=== PATIENT | female | born 1955 | race Caucasian/White ===

== ENCOUNTER 2016-10-09 18:32 | Emergency (ER) | payer OTHER ==
[2015-08-31 12:25] VITALS: Ht 162.6 cm; Wt 87.1 kg
[~2016-10-09] VITALS: Ht 162.6 cm; Wt 87.1 kg
[~2016-10-09 18:32] MED LIST: ALBMDI INH; ALPR0.5T96 PO; BECL8.7A5 INH; BENA20TA2 PO; HYDR-4100 PO; HYDR25TA4 PO; IBUP-1480 PO; METF1000 PO; NEU300 PO; PARO-41 PO
[2016-10-09 18:37] VITALS: BP 157/83; PULSE 118; RESP 20; TEMP 96.9; O2SAT 97
[2016-10-09] MEDS ORDERED: LevALBUTEROL HCL 1.25 MG/0.5 ML *CONC.* VIAL.NEB (XOPENEX CONC.) INH ONE ×2 (19:00→19:15)
--- NOTE | 2016-10-09 19:10 | NUR ---
Pt states she started having SOB with no relief from inhaler earlier today. Pt was getting breathing tx for SOB. Lung sounds had wheeze bilaterally with good tidal volume. Pt reports headache 5/10 . Will continue to monitor via gleason gear generator. No other injuries or complaints mentioned/noted. No distress noted.
--- NOTE | 2016-10-09 19:10 | NUR ---
Note amandamarie in EDM - 10/10/16 at 0257 by WILLA Pt states she started having SOB with no relief from inhaler earlier today. Pt was getting breathing tx for SOB. Lung sounds had wheeze bilaterally with good tidal volume. Pt reports pain 5/10 in the headache. Will continue to monitor via clinical research monitor. No other injuries or complaints mentioned/noted. No distress noted.
[2016-10-09] MEDS ORDERED: MAGNESIUM SULFATE 50 ML IV ONE (19:15)
[2016-10-09] MEDS ORDERED: methylPREDNISolone SOD SUCC/PF 62.5 MG/ML VIAL IVP ONE (19:15)
--- NOTE | 2016-10-09 20:10 | NUR ---
Pt states her headache is getting unbearable and would like some pain medication for head. Dr. Ovalle made aware.
[2016-10-09] MEDS ORDERED: HYDROcodone/ACETAMIN 5-325 MG TAB (NORCO/ VICODIN) PO ONE (20:15)
--- NOTE | 2016-10-09 20:22 | NUR ---
ER Dr. Ovalle at bedside examining patient.
[2016-10-09] MEDS ORDERED: IPRATROPIUM/ALBUTEROL SULFATE 3 ML AMPUL.NEB INH ONE (20:30)
[2016-10-09] MEDS ORDERED: AZITHROMYCIN 250 MG TABLET PO ONE (20:30)
[2016-10-09 21:40] VITALS: BP 144/84; PULSE 106; RESP 20; TEMP 97.8; O2SAT 97
--- NOTE | 2016-10-09 21:40 | NUR ---
Patient given written and verbal discharge instructions and verbalizes understanding. ER MD discussed with patient the results and treatment provided. Patient in stable condition. ID arm band removed. IV catheter removed intact and dressing applied, no active bleeding. Rx of Zithromax, ibuprofen, and albuterol given. Patient educated on pain management and to follow up with PMD. Pain Scale 0/10. Opportunity for questions provided and answered.
== END 2016-10-09 21:40 | disposition home or self-care (01) ==
LOC: SED 18:32
DX: J20.9 Acute bronchitis, unspecified (principal); J45.901 Unspecified asthma with (acute) exacerbation; E11.9 Type 2 diabetes mellitus without complications; I10 Essential (primary) hypertension; Z79.899 Other long term (current) drug therapy
CPT/HCPCS: 71010; 94640; 96365; 96375; 99284; J2930; J3475; Q0144

== ENCOUNTER 2017-11-30 07:30 | Emergency (ER) | payer OTHER ==
[~2017-11-30] VITALS: Ht 162.6 cm; Wt 88.5 kg
[~2017-11-30 07:30] MED LIST changes: -HYDR25TA4 PO; -IBUP-1480 PO
[2017-11-30 07:43] VITALS: BP_SYST 122
[2017-11-30 08:05] LABS: BASOPHILS % (AUTO) 0.2 % (0.0-2.0); HEMATOCRIT 42.7 % (36-48); HEMOGLOBIN 13.9 g/dL (12.0-16.0); LYMPHOCYTES # (AUTO) 1.1 K/uL (1.0-5.5); LYMPHOCYTES % (AUTO) 12.4 % (20.5-51.5); MEAN CORPUSCULAR HEMOGLOBIN 29 pg (27-31); MEAN CORPUSCULAR HGB CONC 33 % (32-36); MEAN CORPUSCULAR VOLUME 90 fL (79.0-98.0); MONOCYTES # (AUTO) 0.5 K/uL (0.0-1.0); MONOCYTES % (AUTO) 5.2 % (1.7-9.3); NEUTROPHILS # (AUTO) 7.3 K/uL (1.8-7.7); NEUTROPHILS % (AUTO) 82.2 % (40.0-70.0); PLATELET COUNT (AUTO) 118 K/uL (130-430); RED BLOOD CELL COUNT(AUTO) 4.76 MIL/uL (4.2-6.2); RED CELL DISTRIBUTION WIDTH 12.1 % (9.0-15.0); WHITE BLOOD COUNT (AUTO) 8.9 K/uL (4.8-10.8)
[2017-11-30 08:25] LABS: INR 0.9 (0.8-1.2); PROTHROMBIN TIME 9.5 SECS (9.5-12.5)
[2017-11-30 08:26] LABS: ALBUMIN 3.4 g/dL (3.4-4.8); CALCIUM 9.2 mg/dL (8.4-11.0); CREATININE 0.95 mg/dL (0.55-1.30)
[2017-11-30 08:28] LABS: POTASSIUM 2.8 mmol/L (3.5-5.1)
[2017-11-30] MEDS ORDERED: NS 500 ML IV ONE (08:45)
[2017-11-30] MEDS ORDERED: KCL 40 mEq in 100 mL (PREMIX) 100 ML IV ONE (08:45)
[2017-11-30 09:01] LABS: CKMB RELATIVE INDEX 0.2 (0.0-2.9); CREATINE KINASE MB 0.5 ng/mL (0-3.6)
[2017-11-30] MEDS ORDERED: KCL 20 mEq in 100 mL (PREMIX) 200 ML IV ONE (09:04)
[2017-11-30] MEDS ORDERED: KETOROLAC TROMETHAMINE 30 MG VIAL IVP ONE (09:15)
[2017-11-30] MEDS ORDERED: ONDANSETRON HCL 4 MG/2 ML VIAL IVP ONE (09:15)
[2017-11-30] MEDS ORDERED: NACL 0.9% 1,000 ML IV ONE (11:00)
[2017-11-30 14:10] LABS: CALCIUM 8.2 mg/dL (8.4-11.0); CREATININE 0.85 mg/dL (0.55-1.30)
[2017-11-30 14:54] VITALS: BP_SYST 111
== END 2017-11-30 14:54 | disposition home or self-care (01) ==
LOC: SED 07:30
DX: J09.X2 Influenza due to identified novel influenza A virus with other respiratory manifestations (principal); E87.6 Hypokalemia; J45.909 Unspecified asthma, uncomplicated; E11.9 Type 2 diabetes mellitus without complications; I10 Essential (primary) hypertension; Z79.899 Other long term (current) drug therapy
CPT/HCPCS: 36415; 71045; 80048; 80053; 82550; 82553; 83690; 84484; 85025; 85610; 85730; 86710; 93005; 96365; 96366; 96375; 99285; J1885; J2405; J3480; J7030; J7040

== ENCOUNTER 2017-12-07 08:47 | Emergency (ER) | payer OTHER ==
[~2017-12-07] VITALS: Ht 162.6 cm; Wt 88.5 kg
[2017-12-07 08:51] VITALS: BP_SYST 152
[2017-12-07] MEDS ORDERED: IPRATROPIUM BROM 0.5 MG/2.5 ML VIAL.NEB (ATROVENT) IH ONE (09:00)
[2017-12-07] MEDS ORDERED: ASPIRIN 81 MG TAB.CHEW PO ONE (09:00)
[2017-12-07] MEDS ORDERED: ALBUTEROL SULFATE 0.083% 2.5 MG/3 ML VIAL.NEB IH ONE (09:00)
[2017-12-07] MEDS ORDERED: methylPREDNISolone SOD SUCC/PF 62.5 MG/ML VIAL IVP ONE (09:00)
[2017-12-07] MEDS ORDERED: cefTRIAXone 1 GM in D5W 50 ML IV ONE (09:15)
[2017-12-07 09:26] LABS: CALCIUM 9.4 mg/dL (8.4-11.0); CREATININE 0.75 mg/dL (0.55-1.30); POTASSIUM 3.2 mmol/L (3.5-5.1)
[2017-12-07 09:30] LABS: INR 1.1 (0.8-1.2); PROTHROMBIN TIME 10.7 SECS (9.5-12.5)
[2017-12-07 09:31] LABS: ALBUMIN 3.1 g/dL (3.4-4.8); TOTAL BILIRUBIN 0.7 mg/dL (0.0-1.0)
[2017-12-07 09:37] LABS: BASOPHILS % (AUTO) 0.1 % (0.0-2.0); EOSINOPHILS % (AUTO) 0.4 % (0.0-4.0); HEMOGLOBIN 12.8 g/dL (12.0-16.0); LYMPHOCYTES # (AUTO) 1.4 K/uL (1.0-5.5); LYMPHOCYTES % (AUTO) 12.2 % (20.5-51.5); MEAN CORPUSCULAR HEMOGLOBIN 29 pg (27-31); MEAN CORPUSCULAR HGB CONC 33 % (32-36); MEAN CORPUSCULAR VOLUME 89 fL (79.0-98.0); MONOCYTES # (AUTO) 0.5 K/uL (0.0-1.0); MONOCYTES % (AUTO) 4.8 % (1.7-9.3); NEUTROPHILS # (AUTO) 9.4 K/uL (1.8-7.7); NEUTROPHILS % (AUTO) 82.5 % (40.0-70.0); PLATELET COUNT (AUTO) 356 K/uL (130-430); RED BLOOD CELL COUNT(AUTO) 4.37 MIL/uL (4.2-6.2); RED CELL DISTRIBUTION WIDTH 11.8 % (9.0-15.0); WHITE BLOOD COUNT (AUTO) 11.3 K/uL (4.8-10.8)
[2017-12-07] MEDS ORDERED: cefTRIAXone 1 GM VIAL ONE (10:10)
[2017-12-07 10:36] LABS: BILIRUBIN,URINE 1+ (NEGATIVE); BLOOD, URINE NEGATIVE (NEGATIVE); CLARITY/URINE HAZY (CLEAR); COLOR,URINE AMBER (YELLOW); GLUCOSE,URINE NEGATIVE (NEGATIVE); KETONES,URINE NEGATIVE (NEGATIVE); LEUKOCYTE ESTERASE ,URINE NEGATIVE (NEGATIVE); NITRITE, URINE NEGATIVE (NEGATIVE); PROTEIN URINE TRACE (NEGATIVE)
[2017-12-07 10:37] LABS: UROBILINOGEN,URINE >=8 (0.2-1.0)
[2017-12-07] MEDS ORDERED: POTASSIUM CHLORIDE 20 MEQ/PKT PACKET PO ONE (10:45)
[2017-12-07 10:53] LABS: BACTERIA,URINE MODERATE /HPF (None Seen); RBC,URINE 0-3 /HPF (0-3)
[2017-12-07 11:30] VITALS: BP_SYST 129
== END 2017-12-07 11:30 | disposition home or self-care (01) ==
LOC: SED 08:47
DX: J40 Bronchitis, not specified as acute or chronic (principal); E87.6 Hypokalemia; E11.9 Type 2 diabetes mellitus without complications; I10 Essential (primary) hypertension; Z79.899 Other long term (current) drug therapy
CPT/HCPCS: 36415; 80053; 81000; 82550; 83690; 84484; 85025; 85610; 85730; 87086; 93005; 94640; 96365; 96375; 99285; J0696; J2930; J7060

== ENCOUNTER 2020-06-12 11:11 | Inpatient (IN) | payer OTHER, SELFPAY ==
[~2020-06-12] VITALS: Ht 162.6 cm; Wt 81.6 kg
[~2020-06-12 11:11] MED LIST changes: +ALPR0.5T PO; -ALPR0.5T96 PO; -BENA20TA2 PO; +BENA20TA9 PO
[2020-06-12 11:17] VITALS: BP_SYST 155
--- NOTE | 2020-06-12 11:21 | NUR ---
Patient to ER bed 07 to gown for evaluation. Side rails up.
--- NOTE | 2020-06-12 11:23 | NUR ---
Patient arrived in the ED c/o headaches, elevated blood pressure, numbness on left hand for a week. Denied any chest pain or shortness of breath. Denied any fevers, chills, nausea or vomiting. Patient is alert and oriented x4, respirations even and unlabored, speaking in full sentences, and ambulating with a steady gait. VSS, pain level 7/10. Informed of the approximate wait time. Instructed to notify ED staff for any changes in condition or worsening of symptoms while waiting to be seen by an ED provider. Patient verbalized understanding.
--- NOTE | 2020-06-12 11:27 | NUR ---
ER Dr. Keli Bustamante at bedside examining patient.
[2020-06-12] MEDS ORDERED: KETOROLAC TROMETHAMINE 60 MG/2 ML VIAL IM ONE (11:45)
[2020-06-12] MEDS ORDERED: ONDANSETRON 4 MG ODT TAB PO ONE (11:45)
--- NOTE | 2020-06-12 11:47 | NUR ---
OFF TO RADIOLOGY VIA WHEELCHAIR.
[2020-06-12 11:56] LABS: BASOPHILS % (AUTO) 0.7 % (0.0-2.0); EOSINOPHILS # (AUTO) 0.1 K/uL (0.0-0.4); HEMATOCRIT 40.1 % (36-48); HEMOGLOBIN 13.7 g/dL (12.0-16.0); LYMPHOCYTES # (AUTO) 1.9 K/uL (1.0-5.5); LYMPHOCYTES % (AUTO) 28.1 % (20.5-51.5); MEAN CORPUSCULAR HEMOGLOBIN 31 pg (27-31); MEAN CORPUSCULAR HGB CONC 34 % (32-36); MEAN CORPUSCULAR VOLUME 92 fL (79.0-98.0); MONOCYTES # (AUTO) 0.3 K/uL (0.0-1.0); MONOCYTES % (AUTO) 4.9 % (1.7-9.3); NEUTROPHILS # (AUTO) 4.4 K/uL (1.8-7.7); NEUTROPHILS % (AUTO) 65.3 % (40.0-70.0); PLATELET COUNT (AUTO) 247 K/uL (130-430); RED BLOOD CELL COUNT(AUTO) 4.37 MIL/uL (4.2-6.2); RED CELL DISTRIBUTION WIDTH 12.9 % (9.0-15.0); WHITE BLOOD COUNT (AUTO) 6.7 K/uL (4.8-10.8)
[2020-06-12 12:16] LABS: CALCIUM 9.6 mg/dL (8.4-11.0); CREATININE 0.81 mg/dL (0.55-1.30); POTASSIUM 4.1 mmol/L (3.5-5.1)
[2020-06-12 12:21] LABS: ALBUMIN 3.7 g/dL (3.4-4.8); TOTAL BILIRUBIN 0.5 mg/dL (0.0-1.0)
[2020-06-12] MEDS ORDERED: ASPIRIN 325 MG TABLET PO ONE (13:30)
--- NOTE | 2020-06-12 14:10 | NUR ---
ECG done at bedside as ordered by Dr. DONTA NICHOLS. Patient tolerated the procedure well. ER Physician given copy of EKG for review.
--- NOTE | 2020-06-12 14:43 | NUR ---
Patient will be admitted to care of DR. BEST. Admitted to TELEMETRY unit. Will go to room 114A. Belongings list completed. Complete and up to date summary report printed. SBAR report to be given at bedside with opportunity for questions.
[2020-06-12 15:06] VITALS: BP_SYST 146
[2020-06-12] MEDS ORDERED: ACETAMINOPHEN 325 MG TABLET PO PRN (15:15)
[2020-06-12] MEDS ORDERED: ONDANSETRON HCL 4 MG/2 ML VIAL IVP PRN (15:15)
[2020-06-12] MEDS ORDERED: MORPHINE 2 MG/ML INJ. SYRINGE IVP PRN (15:15)
--- NOTE | 2020-06-12 15:50 | NUR ---
RECEIVED REPORT FROM RESOURCE RN, JONES. PT AAOX4, IN ROOM ,VS WNL T98.1, P 82, RR 18, BP136/81,PO2 97%. PRESENTLY CORATID ULTRASOUND BEING DONE AT BEDSIDE. PT VOICES NO C/O C/P, OR DISCOMFORT AT THIS TIME.
[2020-06-12 16:00] VITALS: BP_SYST 136
--- NOTE | 2020-06-12 16:25 | NUR ---
CAROTID ULTRASOUND COMPLETED, PT ON THE PHONE AT P[RESENT. A SNACK WAS GIVEN TO PT- DECAF COFFEE, 1/2 OF TURKEY SANDWICH, AND A PUDDING. PT EATS INDEPENDENTLY, NAD NOTED.
--- NOTE | 2020-06-12 16:47 | NUR ---
CONSULTATION PAGED/CALLED Reason for Consultation: [] CVA Person Who was Notified: [] [place] Consulting Physician: [] DR ROSS [facility] Aide Specialty: [] CARDIO Ordering Physician: [] DR Najma BEST
--- NOTE | 2020-06-12 17:00 | NUR ---
RADIOLOGY ADMINISTRATOR: DR JUVENAL ROSS NP SAW AND ASSESSED PATIENT AT BEDSIDE.
[2020-06-12 17:27] LABS: CHOLESTEROL 135 mg/dL (<200); HDL CHOLESTEROL 31 mg/dL (>55); LDL CHOLESTEROL 98 mg/dL (<100); TRIGLYCERIDES 119 mg/dL (30-150)
--- NOTE | 2020-06-12 18:40 | NUR ---
POST STROKE ASSESSMENT DONE WITH PATIENT DIRECTED. PT HAS HER OWN TEETH, HER SMILE IS WNL, ABLE TO MOVE ALL EXTREMITIES W/ O RESIDUAL. SWALLOWS WITHOUT DIFFICULTY, DROOLING, OR WET COUGH. SEE NURSING ASSESSMENT.
--- NOTE | 2020-06-12 18:50 | NUR ---
PT W/ C/O FEELING COLD, WARM BLANKET GIVEN, PT WAS THANKFUL WENT TO SLEEP. PT ATE 60% OF DINNER. NAD NOTED, NO C/O CHEST PAIN OR DISCOMFORT.
[2020-06-12 19:00] VITALS: BP_SYST 145
--- NOTE | 2020-06-12 19:15 | NUR ---
change of shift.pt.presents quiescent affect;calm,resting.pt.presents admit dx;tia.pt.presents no c/o pain,nausea.no general weakness.no dizziness asymptomatic r/e tia.pt.capable to reposition self/ambulate.general status stable;unlabored.call light/telephone w/in access of the pt.
--- NOTE | 2020-06-12 19:25 | NUR ---
REPORT GIVEN TO STEPHANIE GRAIN GRADER RN AT BEDSIDE. PT ASLEEP AT PRESENT RESP REG NON-LABORED.
[2020-06-12 20:00] VITALS: BP_SYST 145
[2020-06-12] MEDS: metFORMIN HCL 500 MG TABLET PO SCH (20:00)
--- NOTE | 2020-06-12 20:00 | NUR ---
pt.assessed.v/s assessed values w/in normal limits.i have apprised the pt.that snacks/beverages are available w/in r-the shift. no requests posited@this hour.pt.had apprised me that she had not received the administration of her medications.byron to review the pt' s medications list.to apprise of the pt's medications.ordered.per med-reconciliation.pt.capable to reposition self.pt.had ambulated to the restroom.gait assessed steady wnl.i performed the neuro-assessment results wnl.i have provided the pt. w toiletries.pt's telephone labor standards director [email or web address].call light/telephone w/in access of the pt.
[2020-06-12] MEDS: GABAPENTIN 300 MG CAPSULE PO SCH (21:00)
--- NOTE | 2020-06-12 21:00 | NUR ---
2100p medications/dosages reviewed w the pt.to page .
--- NOTE | 2020-06-12 21:04 | NUR ---
CONSULT REASON FOR CONSULT: ACUTE CVA PERSON I SPOKE WITH: SENT DR. SALDIVAR A TEXT TO LET HIM KNOW HE HAD A CONSULT REQUESTING DOCTOR: ESTEPHANIA
--- NOTE | 2020-06-12 22:00 | NUR ---
pt.assessed.pt.presents quiescent affect;calm,resting.no requests posited@this hour.pt.capable to reposition self/ambulate. call light/telephone w/in access of the pt.
[2020-06-12] MEDS ORDERED: HYDROcodone/ACETAMIN 10-325 MG TAB PO ONE (22:45)
[2020-06-12] MEDS ORDERED: NALOXONE HCL 0.4 MG/ML AMP (NARCAN) IVP PRN (22:45)
[2020-06-12] MEDS ORDERED: GABAPENTIN 300 MG CAPSULE PO ONE (22:45)
--- NOTE | 2020-06-12 23:00 | NUR ---
returned the page.i apprised of the clarification of the dosage of the pt's medicaction's:neurntuin;60mg qid.shobha orsdwred. meurotin ;60m,g po x1/norco;10/325mg po x1.i bushra coates the neruton /nroco:120/325mg xanmax;0/5mg po.nol adfonal rewqust pe the pot/. Addendum: 06/13/20 at 0410 by Corona Brandon RN above note should read: returned the page.i apprised of the clarification of the dosages of the pt's medications.neurontin:600mg po qid,norco;10/325mg po tid. ordered the medications per the pt's dosages po x1. i have administered the neurontin;600mg po x1/norco;10/325mg po x1 xanax;0.5mg po. Addendum: 06/18/20 at 2340 by Corona Brandon RN HIGH ALERT NOTE: Called Dr. ellington back at [phone];pager. identified within the medical roster to verify physician authenticity. i apprised denisse of pt's home schdul;e;norco;10mg/ qid.schduled. sebastien ordered norco;10/325mg po x1.
[2020-06-12] MEDS: ALPRAZolam 0.25 MG TABLET PO PRN (23:12)
[2020-06-12] MEDS ORDERED: GABAPENTIN 300 MG CAPSULE PO SCH (23:15)
--- NOTE | 2020-06-13 | NUR ---
pt.assessed.v/s assessed values wnl.no c/o pain,nausea.no requests posited@this hour.neuro-assessment performed results wnl. pt.capable to reposition self/ambulate.no requests posited@this hour.call light/telephone w/in access of the pt.
[2020-06-13 00:04] VITALS: BP_SYST 121
--- NOTE | 2020-06-13 02:00 | NUR ---
pt.assessed.pt.presents quiescent affect;calm,somnolent.per flacc pain mgx pt.absent facial grimaces/body posturing. pt.capable to reposition self.general status stable.respiratory status stable;unlabored.call light/telephone w/in access of the pt.
--- NOTE | 2020-06-13 06:04 | NUR ---
pt.assessed.pt.presents quiescent affect;calm,somnolent.per flacc pain mgx pt.absent facial grimaces/body posturing. pt.capable to reposition self.general status stable.respiratory status stable;unlabored.call light/telephone w/in reach of the pt.
[2020-06-13 07:30] VITALS: BP_SYST 130
--- NOTE | 2020-06-13 07:40 | NUR ---
Opening Note patient in bed resting, a/o x 4, respirations even and unlabored, patient in stable condition, fall and aspiration precautions put in place, bed locked and at low position, call light within reach, will monitor patient for any changes.
[2020-06-13] MEDS ORDERED: PARoxetine HCL 20 MG TABLET PO SCH (09:00)
--- NOTE | 2020-06-13 09:18 | NUR ---
MD Rounds Dr. Sutherland at bedside assessing patient, will follow up with any new orders.
[2020-06-13] MEDS: ASPIRIN 325 MG TABLET (ECOTRIN) PO SCH (09:35)
[2020-06-13] MEDS: GABAPENTIN 300 MG CAPSULE PO SCH ×4 (09:35→20:24)
[2020-06-13] MEDS: metFORMIN HCL 500 MG TABLET PO SCH ×2 (09:35→17:57)
--- NOTE | 2020-06-13 09:36 | NUR ---
RN Rounds/medications patient in bed sitting up, administered medications ordered per MD, patient tolerated well, will continue to monitor patient.
[2020-06-13] MEDS ORDERED: ATORVASTATIN 20 MG TABLET PO ONE (09:45)
[2020-06-13] MEDS ORDERED: NALOXONE HCL 0.4 MG/ML AMP (NARCAN) IVP PRN ×2 (10:00)
[2020-06-13] MEDS ORDERED: HYDROcodone/ACETAMIN 10-325 MG TAB PO ONE (10:00)
--- NOTE | 2020-06-13 10:00 | NUR ---
HIGH ALERT NOTE: Spoke with Dr. Sutherland on the floor and identified within the medical roster to verify physician authenticity for [place] order.
[2020-06-13 12:00] VITALS: BP_SYST 116
--- NOTE | 2020-06-13 14:05 | NUR ---
RN Rounds patient in bed resting, no signs of distress noted, administered medication as ordered per MD, patient tolerated well, no other needs at this time.
--- NOTE | 2020-06-13 15:00 | NUR ---
Dietitian Recommendations * Recommend CCHO, 2 gm Na diet (pt would like to continue to receive regular coffee, not decaf coffee -- no cardiac diet restrictions warranted at this time d/t pt's desire to continue to receive caffeinated drinks, which are not allowed on a cardiac diet) NICOLE, REGINA Please refer to Nutrition Assessment for details. Addendum: 06/13/20 at [address] Amended: Links added.
[2020-06-13 16:00] VITALS: BP_SYST 102
[2020-06-13] MEDS ORDERED: ACETAMINOPHEN 325 MG TABLET PO PRN (16:15)
--- NOTE | 2020-06-13 17:50 | NUR ---
MD Quinton Turpin at bedside assessing patient. Addendum: 06/13/20 at 1807 by Rashmi Philippe RN Dr. Turpin would like to see patient in 2 weeks.
[2020-06-13] MEDS: HYDROcodone/ACETAMIN 10-325 MG TAB PO SCH (18:04)
[2020-06-13 20:00] VITALS: BP_SYST 112
--- NOTE | 2020-06-13 20:00 | NUR ---
Opening notes Pt AAOx4, VSS. No s/s distress noted. Pt denies pain. IV saline locked R. AC clear and patent. Call light within reach. Bed low, locked, siderails up x2. To monitor.
--- NOTE | 2020-06-13 21:14 | NUR ---
Dr. Rose amaro.
[2020-06-13] MEDS: ALPRAZolam 0.25 MG TABLET PO PRN (23:42)
[2020-06-14 01:23] VITALS: BP_SYST 126
--- NOTE | 2020-06-14 01:28 | NUR ---
Rounds Pt asleep, easily awakens. No s/s distress noted. Call light within reach. Bed low, locked, siderails up x2. To monitor.
[2020-06-14] MEDS: HYDROcodone/ACETAMIN 10-325 MG TAB PO SCH ×2 (02:54→10:54)
--- NOTE | 2020-06-14 02:54 | NUR ---
Rounds/Pain med Pt asleep, easily awakens. Scheduled [place] administered as ordered. Call lig within reach. Bed low, locked, siderails up x2. To monitor.
--- NOTE | 2020-06-14 06:30 | NUR ---
Closing notes Pt asleep, easily awakens. No s/s distress noted. Pt denies pain. IV saline locked R. AC clear and patent. Call light within reach. Bed low, locked, siderails up x2. To endorse to AM nurse .
--- NOTE | 2020-06-14 07:20 | NUR ---
PATIENT AWAKE AND ALERT, NONLABORED BREATHING NOTED ON ROOM AIR, TOLERATING WELL. IV LINE INTACT AND PATENT, NO SIGNS OF INFILTRATION NOTED. NO ACUTE DISTRESS NOTED. ALL NEEDS MET. CALL LIGHT IN REACH. FALL AND ASPIRATION PRECAUTIONS IN PLACE. CONTINUE TO MONITOR.
[2020-06-14 08:00] VITALS: BP_SYST 111
[2020-06-14] MEDS: ASPIRIN 325 MG TABLET (ECOTRIN) PO SCH (08:15)
[2020-06-14] MEDS: metFORMIN HCL 500 MG TABLET PO SCH (08:15)
[2020-06-14] MEDS: GABAPENTIN 300 MG CAPSULE PO SCH ×2 (08:16→13:11)
--- NOTE | 2020-06-14 08:21 | NUR ---
ROUTINE MEDS ADMINISTERED ORDERED PER MD, EDUCATION GIVEN, TOLERATED WELL. CONTINUE TO MONITOR.
[2020-06-14] MEDS ORDERED: ATORVASTATIN 20 MG TABLET PO SCH (09:00)
[2020-06-14] MEDS ORDERED: LIP20 PO (10:55)
[2020-06-14] MEDS ORDERED: OXYM-21 NS (10:55)
[2020-06-14] MEDS ORDERED: HYDR-4274 PO (10:55)
[2020-06-14] MEDS ORDERED: IBUP-1970 PO (10:55)
[2020-06-14] MEDS ORDERED: PIOG15TA8 PO (10:55)
[2020-06-14] MEDS ORDERED: NEU300 PO (10:55)
[2020-06-14] MEDS ORDERED: CAT.1 PO (10:55)
[2020-06-14] MEDS ORDERED: GLU500 PO (10:55)
[2020-06-14] MEDS ORDERED: ALBMDI INH (10:55)
[2020-06-14] MEDS ORDERED: FLUT16SP16 NS (10:55)
[2020-06-14] MEDS ORDERED: DOXY100C PO (10:55)
[2020-06-14] MEDS ORDERED: [UNRECOGNIZED DRUG - CODE] PO (10:55)
[2020-06-14] MEDS ORDERED: BENA1TAB71 PO (10:55)
[2020-06-14] MEDS ORDERED: ONDA4TAB5 PO (10:55)
[2020-06-14] MEDS ORDERED: ASA81 PO (10:55)
[2020-06-14] MEDS ORDERED: TIZA4TAB11 PO (10:55)
[2020-06-14] MEDS ORDERED: FLO44 INH (10:55)
--- NOTE | 2020-06-14 10:55 | NUR ---
pt c/o head and neck pain, checked bp, administered routine pain meds as ordered per md, education given, tolerated well. continue to monitor.
--- NOTE | 2020-06-14 11:21 | NUR ---
updated pt's med recon list. md aware.
[2020-06-14] MEDS ORDERED: LIP40 PO (11:24)
[2020-06-14 12:00] VITALS: BP_SYST 130
--- NOTE | 2020-06-14 13:20 | NUR ---
ROUNDS PT AWAKE AND ALERT, NO ACUTE DISTRESS NOTED. ALL NEEDS MET. CALL LIGHT IN REACH. FALL AND ASPIRATION PRECAUTIONS IN PLACE. CONTINUE TO MONITOR.
[2020-06-14 13:21] VITALS: BP_SYST 117
--- NOTE | 2020-06-14 14:02 | NUR ---
D/C Patient Patient given medication reconciliation form and D/C instructions. Exit Care provided. Patient verbalized understanding. MD discussed with patient the results and treatment provided. Ambulatory with steady gait for discharge to home. Patient in stable condition, ID band removed. IV catheter removed, intact and dressing applied, no active bleeding. All home meds returned with patient. Patient educated on pain management. All belongings sent with patient.
== END 2020-06-14 14:02 | disposition home or self-care (01) | DRG 69 ==
LOC: SED 11:11 → STU 13:56
PROVIDERS: ADMIT Internal Medicine Hospice and Palliative Medicine; ATTEND Internal Medicine Hospice and Palliative Medicine
DX: G45.9 Transient cerebral ischemic attack, unspecified (principal); E11.9 Type 2 diabetes mellitus without complications; I10 Essential (primary) hypertension; Z96.652 Presence of left artificial knee joint; F32.9 Major depressive disorder, single episode, unspecified; G56.03 Carpal tunnel syndrome, bilateral upper limbs; R26.81 Unsteadiness on feet; E78.5 Hyperlipidemia, unspecified; J45.909 Unspecified asthma, uncomplicated; Z86.73 Personal history of transient ischemic attack (TIA), and cerebral infarction without residual deficits; Z20.828 Contact with and (suspected) exposure to other viral communicable diseases
CPT/HCPCS: 36415; 70450-TC; 70551; 71045; 72141; 80053; 80061; 83036; 84484; 85025; 85610-TC; 85730-TC; 93005; 93306; 93880; 96372; 99285; G0378; J1885; J2270; J2405; Q0162

== ENCOUNTER 2022-03-08 15:31 | Emergency (ER) | payer OTHER ==
[~2022-03-08] VITALS: Ht 167.6 cm; Wt 86.2 kg
[~2022-03-08 15:31] MED LIST changes: -ALPR0.5T PO; +ASA81 PO; -BECL8.7A5 INH; +BENA1TAB71 PO; -BENA20TA9 PO; +FLO44 INH; +FLUT16SP16 NS; +GLU500 PO; -HYDR-4100 PO; +HYDR-4274 PO; +LIP40 PO; -METF1000 PO; +ONDA4TAB5 PO; -PARO-41 PO
--- NOTE | 2022-03-08 16:41 | NUR ---
made call out to ER and no answer. not seen by physician
--- NOTE | 2022-03-08 16:45 | NUR ---
Dr Ly evaluating patient in the triage room
--- NOTE | 2022-03-08 16:45 | NUR ---
Pt brought by self, A&Ox4, pt presents to ER with L lower abd pain radiating to the back, no N/A, denies bleeding, skin pink and warm, respirations even and unlabored, cap refill <3.
[2022-03-08 16:56] VITALS: BP_SYST 106
[2022-03-08] MEDS ORDERED: KETOROLAC TROMETHAMINE 30 MG VIAL IM ONE (17:00)
[2022-03-08 17:26] LABS: BASOPHILS # (AUTO) 0.2 K/uL (0.0-0.2); BASOPHILS % (AUTO) 2.1 % (0.0-2.0); EOSINOPHILS # (AUTO) 0.2 K/uL (0.0-0.4); EOSINOPHILS % (AUTO) 2.6 % (0.0-4.0); HEMATOCRIT 36.9 % (36-48); HEMOGLOBIN 12.5 g/dL (12.0-16.0); LYMPHOCYTES # (AUTO) 2.3 K/uL (1.0-5.5); MEAN CORPUSCULAR HEMOGLOBIN 31 pg (27-31); MEAN CORPUSCULAR HGB CONC 34 % (32-36); MEAN CORPUSCULAR VOLUME 91 fL (79.0-98.0); MONOCYTES # (AUTO) 0.4 K/uL (0.0-1.0); MONOCYTES % (AUTO) 5.2 % (1.7-9.3); NEUTROPHILS # (AUTO) 4.7 K/uL (1.8-7.7); NEUTROPHILS % (AUTO) 60.1 % (40.0-70.0); PLATELET COUNT (AUTO) 148 K/uL (130-430); RED BLOOD CELL COUNT(AUTO) 4.05 MIL/uL (4.2-6.2); WHITE BLOOD COUNT (AUTO) 7.8 K/uL (4.8-10.8)
[2022-03-08 17:40] LABS: CALCIUM 9.5 mg/dL (8.4-11.0); CREATININE 0.93 mg/dL (0.55-1.30); POTASSIUM 4.1 mmol/L (3.5-5.1)
--- NOTE | 2022-03-08 17:44 | NUR ---
Report given to Cal STEVENSON
[2022-03-08 17:45] LABS: ALBUMIN 4.2 g/dL (3.4-4.8); TOTAL BILIRUBIN 0.6 mg/dL (0.0-1.0)
--- NOTE | 2022-03-08 18:00 | NUR ---
Patient to ER bed 4 to gown for evaluation. Side rails up. Report given to GALILEO STEVENSON.
--- NOTE | 2022-03-08 18:30 | NUR ---
Patient resting comfortably in bed with side rails raised. Nad noted at this time. Will continue to monitor.
[2022-03-08 18:54] LABS: BILIRUBIN,URINE NEGATIVE (NEGATIVE); BLOOD, URINE NEGATIVE (NEGATIVE); CLARITY/URINE CLEAR (CLEAR); GLUCOSE,URINE NEGATIVE (NEGATIVE); KETONES,URINE NEGATIVE (NEGATIVE); LEUKOCYTE ESTERASE ,URINE NEGATIVE (NEGATIVE); NITRITE, URINE NEGATIVE (NEGATIVE); PH,URINE 6.5 (5.0-8.0); PROTEIN URINE NEGATIVE (NEGATIVE); UROBILINOGEN,URINE 0.2 (0.2-1.0)
[2022-03-08 18:55] LABS: COLOR,URINE STRAW (YELLOW)
--- NOTE | 2022-03-08 19:15 | NUR ---
Report given to Dawit Steven; assumed care at this time
[2022-03-08] MEDS ORDERED: CYCL10TA24 PO (19:18)
[2022-03-08] MEDS ORDERED: ACET325T53 PO (19:18)
[2022-03-08] MEDS ORDERED: KETOROLAC TROMETHAMINE 30 MG VIAL ONE (19:41)
--- NOTE | 2022-03-08 19:45 | NUR ---
Patient given written and verbal discharge instructions and verbalizes understanding. ER MD discussed with patient the results and treatment provided. Patient in stable condition. ID arm band removed. Rx of FLEXERIL and tylenol given. Patient educated on pain management and to follow up with PMD. Pain Scale 7/10. Opportunity for questions provided and answered. Medication side effect fact sheet provided.
[2022-03-08 19:52] VITALS: BP_SYST 127
== END 2022-03-08 19:45 | disposition home or self-care (01) ==
LOC: SED 15:31
DX: K57.90 Diverticulosis of intestine, part unspecified, without perforation or abscess without bleeding (principal); R10.32 Left lower quadrant pain; M62.830 Muscle spasm of back; J45.909 Unspecified asthma, uncomplicated; E11.9 Type 2 diabetes mellitus without complications; I10 Essential (primary) hypertension; Z91.012 Allergy to eggs; Z79.899 Other long term (current) drug therapy
CPT/HCPCS: 99284; 74176; 80053; 83690; 85025; 36415; 76376; 96372; 81003; J1885

== ENCOUNTER 2022-08-28 12:56 | Emergency (ER) | payer OTHER ==
[~2022-08-28] VITALS: Ht 162.6 cm; Wt 86.2 kg
[~2022-08-28 12:56] MED LIST changes: +ACET325T53 PO; +CYCL10TA24 PO
[2022-08-28 13:00] VITALS: BP_SYST 125
[2022-08-28 14:41] LABS: BASOPHILS # (AUTO) 0.1 K/uL (0.0-0.2); BASOPHILS % (AUTO) 0.7 % (0.0-2.0); EOSINOPHILS # (AUTO) 0.3 K/uL (0.0-0.4); EOSINOPHILS % (AUTO) 3.6 % (0.0-4.0); HEMATOCRIT 42.7 % (36-48); HEMOGLOBIN 14.4 g/dL (12.0-16.0); LYMPHOCYTES # (AUTO) 2.4 K/uL (1.0-5.5); LYMPHOCYTES % (AUTO) 34.5 % (20.5-51.5); MEAN CORPUSCULAR HEMOGLOBIN 32 pg (27-31); MEAN CORPUSCULAR HGB CONC 34 % (32-36); MEAN CORPUSCULAR VOLUME 94 fL (79.0-98.0); MONOCYTES # (AUTO) 0.5 K/uL (0.0-1.0); MONOCYTES % (AUTO) 6.5 % (1.7-9.3); NEUTROPHILS # (AUTO) 3.8 K/uL (1.8-7.7); NEUTROPHILS % (AUTO) 54.7 % (40.0-70.0); PLATELET COUNT (AUTO) 156 K/uL (130-430); RED BLOOD CELL COUNT(AUTO) 4.57 MIL/uL (4.2-6.2); RED CELL DISTRIBUTION WIDTH 12.9 % (9.0-15.0)
[2022-08-28 14:55] LABS: ANION GAP 9 (5-15); CALCIUM 9.4 mg/dL (8.4-11.0); CHLORIDE 101 mmol/L (98-107); CREATININE 0.84 mg/dL (0.55-1.30); GLUCOSE 138 mg/dL (70-99); UREA NITROGEN, BLOOD 14 mg/dL (8-21)
[2022-08-28 14:57] LABS: PROTHROMBIN TIME 10.1 SECS (9.5-12.5)
[2022-08-28 15:01] LABS: ALANINE AMINOTRANSFERASE 34 U/L (12-78); ALBUMIN 4.3 g/dL (3.4-4.8); ASPARTATE AMINOTRANSFERASE 33 U/L (10-37); TOTAL BILIRUBIN 0.7 mg/dL (0.0-1.0)
[2022-08-28 15:07] LABS: GFR AFRICAN AMERICAN 88 mL/min (>90)
[2022-08-28 18:39] VITALS: BP_SYST 135
== END 2022-08-28 18:39 | disposition home or self-care (01) ==
LOC: SED 12:56
DX: R07.9 Chest pain, unspecified (principal); R20.2 Paresthesia of skin; R53.1 Weakness; R42 Dizziness and giddiness; J45.909 Unspecified asthma, uncomplicated; E11.9 Type 2 diabetes mellitus without complications; I10 Essential (primary) hypertension; Z91.012 Allergy to eggs; Z79.899 Other long term (current) drug therapy
CPT/HCPCS: 36415; 70450-TC; 71045; 76376; 80053; 84484; 85025; 85610-TC; 85730-TC; 99285